=== PATIENT | male | born 1960 | race Caucasian/White ===

== ENCOUNTER 2021-08-31 23:04 | Emergency (ER) | payer OTHER, SELFPAY ==
[2021-08-31 23:08] VITALS: BP 113/72; PULSE 95; RESP 16; TEMP 36.5; O2SAT 97
--- NOTE | 2021-09-01 00:05 | ED.EXTPRO ---
HPI - Extremity Problem General Chief complaint: Extremity Problem,Nontraumatic Stated complaint: Rigth thigh pain Time Seen by Provider: 08/31/21 23:29 History of Present Illness HPI Narrative: 61-year-old male presents to the emergency room complaining of right thigh pain that started at 9:00 this evening. Patient states that he has been climbing a ladder frequently over the past couple of days. Patient states the pain lasts for couple of minutes and is occurred twice tonight. Describes the pain is dull achy throbbing pain at times can escalate to a stabbing pain. Rates the pain an 8 out of 10. States the pain is worse when he standing and is alleviated with rest. Denies injury or trauma. Related Data Allergies Allergy/AdvReac Type Severity Reaction Status Date / Time No Known Allergies Allergy Verified 08/31/21 23:29 Review of Systems Review of Systems: CONSTITUTIONAL: Denies fever, chills, or sweats. EYES: Denies visual changes, redness, or discharge. ENT: Denies rhinorrhea, congestion, sore throat, or otalgia. CARDIOVASCULAR: Denies chest pain, palpitations, or edema. RESPIRATORY: Denies cough or dyspnea. GASTROINTESTINAL: Denies abdominal pain, nausea, vomiting, or diarrhea. GENITOURINARY: Denies dysuria or hematuria. SKIN: Denies rash or itching. MUSCULOSKELETAL: Right thigh pain NEUROLOGIC: Denies headache, numbness, dizziness, or weakness. PSYCHIATRIC: Denies anxiety or depression. Exam Narrative: GENERAL: Well-appearing, well-nourished, and in no acute distress. HEAD: Normocephalic, atraumatic. EYES: PERRLA and EOMI. ENT: Nares clear, no rhinorrhea or epistaxis. Mucous membranes moist. NECK: Supple. No adenopathy or masses. No carotid bruits or JVD CHEST: Clear to auscultation. No respiratory distress. No wheezes rales or rhonchi HEART: Regular rate and rhythm. No murmur heard. Normal peripheral pulses. ABDOMEN: Soft, nontender, nondistended, normal active bowel sounds. EXTREMITIES: Normal range of motion. No edema. Right leg: Full range of motion of the hip and knee joints. No tenderness on palpation to the right medial thigh. No ecchymosis present no swelling present; Homans' sign negative. Pulses present distally SKIN: Warm, dry, no rash. NEURO: No focal deficits. Alert and oriented x3. PSYCH: Normal mood and affect. Course Vital Signs Vital signs: Vital Signs Temperature 36.5 C 08/31/21 23:08 Pulse Rate 95 08/31/21 23:08 Respiratory Rate 16 08/31/21 23:08 Blood Pressure 113/72 08/31/21 23:08 Pulse Oximetry 97 08/31/21 23:08 Temperature 36.5 C 08/31/21 23:08 Pulse Rate 76 09/01/21 00:48 Respiratory Rate 16 09/01/21 00:48 Blood Pressure 105/66 09/01/21 00:48 Pulse Oximetry 98 09/01/21 00:48 MDM - Extremity (Nontraumatic) MDM Narrative Medical decision making narrative: 61-year-old male presented to emergency room with complaints of a right leg pain. Patient stated he had been working on a ladder today.. On exam the majority of his pain followed the sartorius muscle. CBC CMP and D-dimer were all unremarkable. Patient is likely experiencing muscle strain. Will recommend patient go home with anti-inflammatories Lab Data Result diagrams: 09/01/21 00:08 09/01/21 00:08 Labs: Lab Results 09/01/21 09/01/21 09/01/21 Range/Units 00:08 00:08 00:08 WBC 6.1 (4.5-10.0) K/mm3 RBC 4.92 (4.6-6.20) M/mm3 Hgb 14.5 (14.0-18.0) g/dL Hct 42.5 (42.0-52.0) % MCV 86.4 (80-100) fl MCH 29.5 (26-34) pg MCHC 34.1 (32-36) g/dl RDW 13.2 (11.5-14.5) % Plt Count 207 (150-375) k/mm3 MPV 9.9 (7.4-10.4) fl Immature Gran % (Auto) 0.2 (0-0.5) % Neut % (Auto) 61.1 (45.5-73.1) % Lymph % (Auto) 23.5 (18.3-44.2) % [place] % (Auto) 12.1 H (2.6-8.5) % Eos % (Auto) 2.4 (0-4.4) % Baso % (Auto) 0.7 (0.2-1.2) % Lymph # (Auto) 1.44 (0.9-3.2) K/mm3 [place] # (Auto) 0.7 H (0.1-0
[2021-09-01 00:13] LABS: Basophils Percent Auto 0.7 % (0.2-1.2); Eosinophils Absolute Auto 0.2 K/mm3 (0-0.3); Eosinophils Percent Auto 2.4 % (0-4.4); Hematocrit 42.5 % (42.0-52.0); Hemoglobin 14.5 g/dL (14.0-18.0); Immature Granulocyte Absolute 0.01 K/mm3 (0.00-0.031); Immature Granulocyte Percent A 0.2 % (0-0.5); Lymphocytes Absolute Auto 1.44 K/mm3 (0.9-3.2); Lymphocytes Percent Auto 23.5 % (18.3-44.2); Mean Corpuscular HGB Conc 34.1 g/dl (32-36); Mean Corpuscular Hemoglobin 29.5 pg (26-34); Mean Corpuscular Volume 86.4 fl (80-100); Mean Platelet Volume 9.9 fl (7.4-10.4); Monocytes Absolute Auto 0.7 K/mm3 (0.1-0.6); Monocytes Percent Auto 12.1 % (2.6-8.5); Neutrophils Absolute Auto 3.8 K/mm3 (1.3-6.7); Neutrophils Percent Auto 61.1 % (45.5-73.1); Platelet Count Result 207 k/mm3 (150-375); Red Blood Count 4.92 M/mm3 (4.6-6.20); Red Cell Distribution Width 13.2 % (11.5-14.5); White Blood Count 6.1 K/mm3 (4.5-10.0)
[2021-09-01 00:25] LABS: Alanine Aminotransferase 31 U/L (4-50); Albumin Level 4.3 g/dL (3.5-5.1); Alkaline Phosphatase 71 U/L (38-126); Anion Gap 6 mmol/L (8-16); Aspartate Amino Transferase 40 U/L (17-59); Bilirubin,Total 0.8 mg/dL (0.2-1.3); Blood Urea Nitrogen 21 mg/dL (9-20); Calcium 8.7 mg/dL (8.4-10.2); Carbon Dioxide 27 mmol/L (22-30); Chloride 107 mmol/L (98-107); Estimated CRCL calculation 62 ml/min; Estimated Glomerular Filt Rate > 60; Glucose 109 mg/dL (65-110); Potassium 3.5 mmol/L (3.4-5.0); Sodium 140 mmol/L (137-145)
[2021-09-01 00:48] VITALS: BP 105/66; PULSE 76; RESP 16; O2SAT 98
[2021-09-01 01:11] LABS: D Dimer < 0.22 ug/mL (<0.48)
== END 2021-09-01 01:39 | disposition home or self-care (01) ==
PROVIDERS: Emergency Provider Nurse Practitioner Family; PCP Internal Medicine
DX: S76.911A Strain of unspecified muscles, fascia and tendons at thigh level, right thigh, initial encounter (principal); X50.9XXA Other and unspecified overexertion or strenuous movements or postures, initial encounter
CPT/HCPCS: 36415; 80053; 85025; 85380; 99283

== ENCOUNTER 2022-03-08 16:42 | Emergency (ER) | payer OTHER, SELFPAY ==
--- NOTE | ~2022-03-08 | XR_ITS ---
EXAM: XR knee RT 2V DATE: 03/08/2022 16:57 HISTORY: puncture wound from nail gun, distal to patella medial . COMPARISON: None available. FINDINGS: Mildly decreased mineralization. No fracture or dislocation. No lytic or blastic lesion. M oderate medial joint space narrowing. Tricompartmental osteophytosis, moderate in the patellofemoral and medial compartments. No erosion or periosteal change. Large volume joint fluid. IMPRESSION: No acute osseous finding in the right knee. Large right knee joint effusion. No radiopaqu e foreign body. Reviewed, dictated and finalized at location K. IMPRESSION: No acute osseous finding in the right knee. Large right knee joint effusion. No radiopaque foreign body.
--- NOTE | 2022-03-08 16:51 | ED.LOWEXIN ---
HPI - Extremity Injury (Lower) General Chief Complaint: Wound/Laceration Stated Complaint: rt knee wound Time Seen by Provider: 03/08/22 17:00 Source: patient and RN notes reviewed Mode of arrival: ambulatory Limitations: no limitations History of Present Illness HPI Narrative: 61-year-old male presents with concern for injury to his right knee. He reports this afternoon he was working and he hit his right knee with a screw. He reports the screw punctured his knee. He reports he immediately felt pain and swelling. He reports the swelling increase. He is not up-to-date on his tetanus vaccination. He reports pain at rest and pain with range of motion. He denies redness, warmth. MD complaint: knee injury Related Data Allergies Allergy/AdvReac Type Severity Reaction Status Date / Time No Known Allergies Allergy Verified 08/31/21 23:29 Review of Systems Review of Systems: CONSTITUTIONAL: Denies malaise, chills, sweats, or fever. SKIN: Denies rash or itching,laceration, abrasion, redness, warmth. Reports right knee puncture wound MUSCULOSKELETAL: Reports right knee pain and swelling NEUROLOGIC: Denies numbness, weakness All systems reviewed & are unremarkable except as noted in HPI and below PMFSH Comments At time of signature, agree with nursing past medical, surgical, social and family history. There is no relevant family history pertinent to the presenting complaint Exam Narrative: GENERAL: Well-appearing, well-nourished, and in no acute distress. HEAD: Normocephalic, atraumatic. EYES: PERRLA, conjunctivae clear NECK: Supple. CHEST: Speaks in full sentences. No respiratory distress. HEART: Regular rate and rhythm. Normal and equal peripheral pulses. EXTREMITIES: Left knee has normal sensation, limited range of motion. Moderate anterior edema without erythema or ecchymosis. Normal sensation with sensitivity to light touch and pain. Anterior tenderness. No skin tenting, no devitalized tissue or atrophy, no trophic changes, no obvious deformity, alignment normal, nearby joints and structures intact. Distal pulses palpable and equal bilaterally, skin warm, dry, pink. Capillary refill less than 3 seconds. SKIN: Warm, dry, no rash. Anterior right knee puncture wound noted with hemostasis NEURO: Alert and oriented x3. PSYCH: Normal mood and affect Course Course Emergency Course: Patient is aware of diagnosis, understands and agrees to treatment plan. Anticipatory guidance given. Patient agrees to follow-up as directed and is aware of reasons to seek care at the emergency department. Portions of this record may have been created with voice recognition software Level of Care: Express Care Visit Vital Signs Vital signs: Reviewed. MDM - Extremity Injury (Lower) MDM Narrative Medical decision making narrative: Patients injury and pain is consistent with musculoskeletal etiology. No signs of neurological or vascular compromise on exam. Compartments and tissues are soft without signs of compartment syndrome. Pain is felt appropriate for further evaluation on an outpatient basis. Imaging Data My impression: Images reviewed, interpreted by radiologist, agree, see report. Radiologist's impression: EXAM:? XR knee RT 2V DATE: 03/08/2022 16:57 HISTORY: puncture wound from nail gun, distal to patella medial . COMPARISON:? None available. FINDINGS:? Mildly decreased mineralization. No fracture or dislocation. No lytic or blastic lesion. Moderate medial joint space narrowing. Tricompartmental osteophytosis, moderate in the patellofemoral and medial compartments. No erosion or periosteal change. Large volume joint fluid. IMPRESSION: No acute osseous finding in the right knee. Large right knee joint effusion. No radiopaque foreign body. Critical Care Time Critical Care Time Critical Care Time: No Discharge Plan Discharge Clinical Impression: Puncture wound of knee, right, Effusion of knee joint right Patient Di
[2022-03-08 16:57] VITALS: BP 123/78; PULSE 97; RESP 16; TEMP 37; O2SAT 99
[2022-03-08] MEDS: TETANUS,DIPHTHERIA,AC PERTUSSIS ADULT (0.5 ML) BOOSTRIX IM (17:15)
== END 2022-03-08 17:22 | disposition home or self-care (01) ==
PROVIDERS: Emergency Provider Nurse Practitioner; PCP Internal Medicine
DX: S81.031A Puncture wound without foreign body, right knee, initial encounter (principal); W45.0XXA Nail entering through skin, initial encounter; Z23 Encounter for immunization; M25.461 Effusion, right knee
CPT/HCPCS: 73560; 90471; 90715; 99213; G0463

== ENCOUNTER 2023-02-23 19:22 | Emergency (ER) | payer OTHER, SELFPAY ==
--- NOTE | ~2023-02-23 | XR_ITS ---
EXAMINATION: XR finger 2nd LT min 2V DATE: 02/23/2023 21:52 INDICATION: Left hand second digit laceration. TECHNIQUE: Three views of left hand second digit were obtained. COMPARISON: None. FINDINGS: Bone alignment is normal. No fracture. 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 IMPRESSION: 1. No fracture or radiopaque foreign body. Reviewed, dictated and finalized at location E.
[2023-02-23 19:44] VITALS: BP 123/90; PULSE 86; RESP 20; TEMP 36.4; O2SAT 98
--- NOTE | 2023-02-23 22:05 | ED.UPPEXIN ---
HPI - Extremity Injury (Upper) General Chief Complaint: Extremity Injury, Upper Stated Complaint: left pointer finger laceration Time Seen by Provider: 02/23/23 21:11 Source: patient Mode of arrival: ambulatory Limitations: no limitations History of Present Illness HPI narrative: This is a 62 year old male that presents to the ER for laceration to the left 2nd finger sustained just prior to arrival. Reports he accidentally cut it with a utility knife. Reports bleeding and pain to the area. He is up to date on tetanus. Denies decreased ROM or numbness. Related Data Allergies Allergy/AdvReac Type Severity Reaction Status Date / Time No Known Allergies Allergy Verified 02/23/23 19:48 Review of Systems Review of Systems: CONSTITUTIONAL: Denies fever SKIN: Reports laceration NEUROLOGIC: Denies numbness All systems reviewed & are unremarkable except as noted in HPI and below PMFSH Past Medical History Medical History (Updated 02/23/23 @ 22:55 by Yarelis Grajeda PA-C) No active medical problems Social History Social History (Updated 02/23/23 @ 22:12 by Yarelis Grajeda PA-C) Substance use: never Exam Narrative: GENERAL: Well-appearing, well-nourished, and in no acute distress. HEAD: Normocephalic, atraumatic. EYES: EOMI. EXTREMITIES: Normal range of motion. No edema. Left 2nd finger with 2cm linear laceration into subcutaneous tissue involving a small portion of the lateral nail SKIN: Warm, dry, no rash. NEURO: No focal deficits. Alert and oriented x3. PSYCH: Normal mood and affect Course Course Emergency Course: Patient educated on further wound care Vital Signs Vital signs: Vital Signs Temperature 97.6 F 02/23/23 19:44 Pulse Rate 86 02/23/23 19:44 Respiratory Rate 20 02/23/23 19:44 Blood Pressure 123/90 02/23/23 19:44 Pulse Oximetry 98 02/23/23 19:44 Oxygen Delivery Room Air 02/23/23 19:44 Temperature 97.6 F 02/23/23 19:44 Pulse Rate 86 02/23/23 19:44 Respiratory Rate 20 02/23/23 19:44 Blood Pressure 123/90 02/23/23 19:44 Pulse Oximetry 98 02/23/23 19:44 Oxygen Delivery Room Air 02/23/23 19:44 Procedures Laceration Laceration 1: Date: 02/23/23 Time: 22:56 Site: hand Side (If applicable): left Size (cm): 2 Description: linear Depth: simple, single layer Local Anesthetic: lidocaine 1% Amount of anesthesia used (mL): 5 Pre-repair: wound explored and irrigated ====== Skin Level ====== Skin layer closed with: nylon Size (cm): 4-0 Number of sutures: 3 Technique: simple, interrupted ====== Subcutaneous Layer ====== ====== Muscle Layer ====== ====== Tendon Layer ====== MDM - Extremity Injury (Upper) MDM Narrative Medical decision making narrative: Patient presents to the emergency department for laceration to the left second finger sustained just prior to arrival. Patient is neurovascularly intact. Left second finger x-ray without acute osseous abnormalities or evidence of foreign body. Patient is up-to-date on tetanus. His wound was irrigated and closed with sutures. He was educated on further wound care. He is to follow-up with primary provider. He was given warnings to return to the ER Differential Diagnosis Differential diagnosis: Likely other (laceration, abrasion, skin avulsion) Imaging Data Radiologist's impression: ITS Impressions Finger X-Ray 02/23/23 21:54 IMPRESSION: 1. No fracture or radiopaque foreign body. Critical Care Time Critical Care Time Critical Care Time: No Discharge Plan Discharge Clinical Impression: Laceration of finger Qualifiers: Encounter type: initial encounter Finger: index finger Damage to nail status: with damage Foreign body presence: without foreign body Laterality: left Qualified Code(s): S61.311A - Laceration without foreign body of left index finger with dam
[2023-02-23 23:00] VITALS: BP 127/75; PULSE 75; RESP 18; O2SAT 99
== END 2023-02-23 23:11 | disposition home or self-care (01) ==
PROVIDERS: Emergency Provider Physician Assistant; PCP Internal Medicine
DX: S61.311A Laceration without foreign body of left index finger with damage to nail, initial encounter (principal); W27.0XXA Contact with workbench tool, initial encounter
CPT/HCPCS: 12001; 73140; 99283